=== PATIENT | female | born 1965 | race Caucasian/White ===

== ENCOUNTER → 2017-03-04 | Outpatient (CLI) | payer OTHER ==
[~2017-03-04] MED LIST: GUMMI BEAR MUL1 EACH PO; LORATADINE10 M2 PO; METOPROLOL SUCC25 MG PO; METOPROLOL TART25 MG PO; PAXIL30 MG PO
== END | disposition home or self-care (01) ==
LOC: RAD 16:30
DX: K76.0 Fatty (change of) liver, not elsewhere classified (principal); I70.0 Atherosclerosis of aorta; N28.89 Other specified disorders of kidney and ureter; M47.895 Other spondylosis, thoracolumbar region
CPT/HCPCS: 74177